=== PATIENT | female | born 1960 | race Caucasian/White ===

== ENCOUNTER 2017-07-07 17:38 | Emergency (ER) | payer OTHER ==
[~2017-07-07] VITALS: Ht 167.6 cm; Wt 70.3 kg
[~2017-07-07 17:38] MED LIST: LITHIUM CARBON300 M1 PO
[2017-07-07] MEDS ORDERED: BUPROPION HCL150 M2 PO (17:59)
[2017-07-07] MEDS ORDERED: TRAZODONE HCL150 MG PO (17:59)
[2017-07-07] MEDS ORDERED: GEMFIBROZIL600 MG PO (17:59)
[2017-07-07] MEDS ORDERED: METFORMIN HCL500 M1 PO (17:59)
[2017-07-07] MEDS ORDERED: IBUPROFEN800 MG PO (18:00)
[2017-07-07] MEDS ORDERED: LYRICA100 MG PO (18:02)
[2017-07-07] MEDS ORDERED: MELOXICAM7.5 MG PO (18:49)
[2017-07-07] MEDS ORDERED: TRAMADOL HCL50 MG PO (19:31)
== END 2017-07-07 20:04 | disposition home or self-care (01) ==
LOC: ED 17:38
DX: M25.572 Pain in left ankle and joints of left foot (principal); F17.200 Nicotine dependence, unspecified, uncomplicated; Z90.710 Acquired absence of both cervix and uterus; Z98.890 Other specified postprocedural states; Z88.8 Allergy status to other drugs, medicaments and biological substances; Z79.84 Long term (current) use of oral hypoglycemic drugs
CPT/HCPCS: 73610; 84550; 85025; 96372; 99283; J1885

== ENCOUNTER 2020-06-01 13:00 | Emergency (ER) | payer OTHER ==
[~2020-06-01] VITALS: Ht 167.6 cm; Wt 71.2 kg
[~2020-06-01 13:00] MED LIST changes: +B COMPLEX1 EACH PO; +BUPROPION HCL150 M2 PO; +CITALOPRAM HBR20 MG PO; +FISH OIL 1,0001 EAC5 PO; +GEMFIBROZIL600 MG PO; +IBUPROFEN800 MG PO; +LISINOPRIL10 MG PO; +LYRICA100 MG PO; +MELOXICAM7.5 MG PO; +METFORMIN HCL500 M1 PO; +TRAMADOL HCL50 MG PO; +TRAZODONE HCL150 MG PO; +ULTRAM50 MG PO
[2020-06-01] MEDS ORDERED: MECLIZINE HCL25 MG PO (13:22)
[2020-06-01] MEDS ORDERED: EC-NAPROXEN500 MG PO (13:23)
[2020-06-01] MEDS ORDERED: COZAAR50 MG PO (13:23)
[2020-06-01] MEDS ORDERED: NORCO 5-325 TA1 EACH PO (15:08)
[2020-06-01] MEDS ORDERED: TIZANIDINE HCL2 M1 PO (15:08)
== END 2020-06-01 15:16 | disposition home or self-care (01) ==
LOC: ED 13:00
DX: R60.0 Localized edema (principal); G89.29 Other chronic pain; F32.9 Major depressive disorder, single episode, unspecified; I10 Essential (primary) hypertension; E78.00 Pure hypercholesterolemia, unspecified; Z88.8 Allergy status to other drugs, medicaments and biological substances; Z79.899 Other long term (current) drug therapy
CPT/HCPCS: 93971; 99283-25

== ENCOUNTER 2022-08-18 08:39 | Emergency (ER) | payer MEDICARE, OTHER ==
[~2022-08-18] VITALS: Ht 167.6 cm; Wt 71.2 kg
[~2022-08-18 08:39] MED LIST changes: +COZAAR50 MG PO; +EC-NAPROXEN500 MG PO; +MECLIZINE HCL25 MG PO; +NORCO 5-325 TA1 EACH PO; +TIZANIDINE HCL2 M1 PO
--- OUTSIDE RECORDS SUMMARY | 2022-08-18 08:42 | XMS ---
PreManage Notification: CRISTINA CHUN Security Corporate Legal Manager Events No recent Security Events currently on file CRITERIA MET - [facility] [place] CARE PROVIDERS There are no care providers on record at this time. Tommy has no Care Guidelines for this patient. Calvin VISIT COUNT (12 MO.) 1 Marty Rodriguez TOTAL 2 NOTE: Visits indicate total known visits. ED/C VISIT TRACKING (12 MO.) 08/18/2022 08:40 [facility] [place] TYPE: Emergency COMPLAINT: - LT FOOT PAIN 10/17/2021 18:04 Marty RIOS [place] TYPE: Emergency DIAGNOSES: - Altered mental status, unspecified - Altered Mental Status - Other psychoactive substance use, unspecified with intoxication, uncomplicated INPATIENT VISIT TRACKING (12 MO.) No inpatient visits to display in this time frame [id number]
== END 2022-08-18 09:40 | disposition home or self-care (01) ==
LOC: ED 08:39
DX: S93.402A Sprain of unspecified ligament of left ankle, initial encounter (principal); I10 Essential (primary) hypertension; E78.00 Pure hypercholesterolemia, unspecified; F17.200 Nicotine dependence, unspecified, uncomplicated; Z88.8 Allergy status to other drugs, medicaments and biological substances; Z79.899 Other long term (current) drug therapy; W10.9XXA Fall (on) (from) unspecified stairs and steps, initial encounter
CPT/HCPCS: 73610; 99283-25

== ENCOUNTER 2022-08-21 14:03 | Emergency (ER) | payer MEDICARE, OTHER ==
[~2022-08-21] VITALS: Ht 167.6 cm; Wt 71.2 kg
--- OUTSIDE RECORDS SUMMARY | 2022-08-21 14:06 | XMS ---
PreManage Notification: CRISTINA CHUN Security Financial Rep Events No recent Security Events currently on file CRITERIA MET - [facility] - 2 Visits in 30 Days - [facility] CARE PROVIDERS There are no care providers on record at this time. Tommy has no Care Guidelines for this patient. Calvin VISIT COUNT (12 MO.) 1 [facility] NOTE: Visits indicate total known visits. ED/C VISIT TRACKING (12 MO.) [facility] 14[facility] [place] [facility] COMPLAINT: - ALTERED LOC 08/18/2022 08:40 [facility] [place] TYPE: Emergency COMPLAINT: - LT FOOT PAIN DIAGNOSES: - Sprain of unspecified ligament of left ankle, initial encounter - Pure hypercholesterolemia, unspecified - Other manager long term care (current) drug therapy - Nicotine dependence, unspecified, uncomplicated - Essential (primary) hypertension - Fall (on) (from) unspecified stairs and steps, initial encounter - Allergy status to other drugs, medicaments and biological substances 10/17/2021 18:04 Marty RIOS [place] TYPE: Emergency DIAGNOSES: - Altered mental status, unspecified - Altered Mental Status - Other psychoactive substance use, unspecified with intoxication, uncomplicated INPATIENT VISIT TRACKING (12 MO.) No inpatient visits to display in this time frame [id number]
== END 2022-08-21 17:11 | disposition home or self-care (01) ==
LOC: ED 14:03
DX: F11.90 Opioid use, unspecified, uncomplicated (principal); I10 Essential (primary) hypertension; E78.00 Pure hypercholesterolemia, unspecified; F17.200 Nicotine dependence, unspecified, uncomplicated; Z88.8 Allergy status to other drugs, medicaments and biological substances; Z79.899 Other long term (current) drug therapy
CPT/HCPCS: 36415; 80053; 85025; 99285; G0480

== ENCOUNTER 2022-09-12 14:07 | Emergency (ER) | payer MEDICARE, OTHER ==
[~2022-09-12] VITALS: Ht 167.6 cm; Wt 68.0 kg
--- OUTSIDE RECORDS SUMMARY | 2022-09-12 14:10 | XMS ---
PreManage Notification: CRISTINA CHUN Security Engineering Manager Events No recent Security Events currently on file CRITERIA MET - [facility] - 2 Visits in 30 Days - [facility] CARE PROVIDERS There are no care providers on record at this time. Tommy has no Care Guidelines for this patient. Calvin VISIT COUNT (12 MO.) 2 [facility] NOTE: Visits indicate total known visits. ED/C VISIT TRACKING (12 MO.) [facility]22 14[facility] [place] [facility] COMPLAINT: - LT ANKLE INJURY 09/06/2022 15:41 Marty CraneTory RIOS [place] TYPE: Emergency DIAGNOSES: - Overdose (Accidental) - Other shelter (current) drug therapy - Poisoning by unspecified narcotics, accidental (unintentional), initial encounter - Overdose 08/21/2022 14:04 [facility] [place] TYPE: Emergency COMPLAINT: - ALTERED LOC DIAGNOSES: - Slurred speech - Pure hypercholesterolemia, unspecified - Allergy status to other drugs, medicaments and biological substances - Opioid use, unspecified, uncomplicated - Other local company intermodal truck driver (current) drug therapy - Nicotine dependence, unspecified, uncomplicated - Essential (primary) hypertension 08/18/2022 08:40 [facility] [place] TYPE: Emergency COMPLAINT: - LT FOOT PAIN DIAGNOSES: - Nicotine dependence, unspecified, uncomplicated - Essential (primary) hypertension - Fall (on) (from) unspecified stairs and steps, initial encounter - Allergy status to other drugs, medicaments and biological substances - Sprain of unspecified ligament of left ankle, initial encounter - Pure hypercholesterolemia, unspecified - Other shelter (current) drug therapy 10/17/2021 18:04 Marty RIOS [place] TYPE: Emergency DIAGNOSES: - Altered mental status, unspecified - Altered Mental Status - Other psychoactive substance use, unspecified with intoxication, uncomplicated INPATIENT VISIT TRACKING (12 MO.) No inpatient visits to display in this time frame [id number]
[2022-09-12] MEDS ORDERED: BUPRENORPHINE HC2 MG SL (14:27)
[2022-09-12] MEDS ORDERED: HYDROCHLOROTHIA25 MG PO (14:27)
[2022-09-12] MEDS ORDERED: PREGABALIN75 MG PO (14:27)
[2022-09-12] MEDS ORDERED: BACLOFEN5 MG PO (14:27)
[2022-09-12] MEDS ORDERED: LITHIUM CARBON300 MG PO (14:27)
[2022-09-12] MEDS ORDERED: LAMOTRIGINE25 MG PO (14:28)
[2022-09-12] MEDS ORDERED: DULOXETINE HCL60 MG PO (14:28)
== END 2022-09-12 18:17 | disposition home or self-care (01) ==
LOC: ED 14:07
PROC: 2W3MX1Z Immobilization of Left Lower Extremity using Splint (ICD-10-PCS; principal; 2022-09-12)
DX: S92.012A Displaced fracture of body of left calcaneus, initial encounter for closed fracture (principal); I10 Essential (primary) hypertension; E78.00 Pure hypercholesterolemia, unspecified; F17.200 Nicotine dependence, unspecified, uncomplicated; Z88.8 Allergy status to other drugs, medicaments and biological substances; Z79.899 Other long term (current) drug therapy; X50.1XXA Overexertion from prolonged static or awkward postures, initial encounter
CPT/HCPCS: 29515; 73610; 73700; 99284-25

== ENCOUNTER 2022-12-07 11:35 | Inpatient (IN) | payer MEDICARE, OTHER ==
[~2022-12-07] VITALS: Ht 167.6 cm; Wt 59.7 kg
[~2022-12-07 11:35] MED LIST changes: +BACLOFEN5 MG PO; +BUPRENORPHINE HC2 MG SL; +DULOXETINE HCL60 MG PO; +HYDROCHLOROTHIA25 MG PO; +LAMOTRIGINE25 MG PO; +LITHIUM CARBON300 MG PO; +PREGABALIN75 MG PO
--- OUTSIDE RECORDS SUMMARY | 2022-12-07 11:37 | XMS ---
PreManage Notification: CRISTINA CHUN Security Oral Surgeon Events No recent Security Events currently on file CRITERIA MET - [facility] - 6 ED Visits in 6 Months CARE PROVIDERS -, [place]- Dentist: Export Administrator [facility] PHONE: [phone] Tommy has no Care Guidelines for this patient. EBibi VISIT COUNT (12 MO.) 1 Marty Rodriguez TOTAL 6 NOTE: Visits indicate total known visits. ED/UCC VISIT TRACKING (12 MO.) 12/07/2022 11:36 [facility] [place] TYPE: Emergency COMPLAINT: - LT KNEE PAIN 09/14/2022 17:43 [facility] [place] TYPE: Emergency COMPLAINT: - L FOOT PAIN DIAGNOSES: - Other supervisor intermediates (current) drug therapy - Essential (primary) hypertension - Unspecified fracture of left calcaneus, subsequent encounter for fracture with routine healing - Pure hypercholesterolemia, unspecified - Allergy status to other drugs, medicaments and biological substances - Nicotine dependence, unspecified, uncomplicated - Allergy status to other antibiotic agents - Pain in left foot 09/12/2022 14:08 [facility] [place] TYPE: Emergency COMPLAINT: - LT ANKLE INJURY DIAGNOSES: - Other residential (current) drug therapy - Nicotine dependence, unspecified, uncomplicated - Essential (primary) hypertension - Allergy status to other drugs, medicaments and biological substances - Overexertion from prolonged static or awkward postures, initial encounter - Pain in left ankle and joints of left foot - Pure hypercholesterolemia, unspecified - Displaced fracture of body of left calcaneus, initial encounter for closed fracture 09/06/2022 15:41 Marty RIOS [place] TYPE: Emergency DIAGNOSES: - Other supervisor intermediates (current) drug therapy - Poisoning by unspecified narcotics, accidental (unintentional), initial encounter - Overdose - Overdose (Accidental) 08/21/2022 14:04 [facility] [place] TYPE: Emergency COMPLAINT: - ALTERED LOC DIAGNOSES: - Allergy status to other drugs, medicaments and biological substances - Opioid use, unspecified, uncomplicated - Other residential (current) drug therapy - Nicotine dependence, unspecified, uncomplicated - Essential (primary) hypertension - Slurred speech - Pure hypercholesterolemia, unspecified 08/18/2022 08:40 [facility] [place] TYPE: Emergency COMPLAINT: - LT FOOT PAIN DIAGNOSES: - Fall (on) (from) unspecified stairs and steps, initial encounter - Allergy status to other drugs, medicaments and biological substances - Sprain of unspecified ligament of left ankle, initial encounter - Pure hypercholesterolemia, unspecified - Other residential (current) drug therapy - Nicotine dependence, unspecified, uncomplicated - Essential (primary) hypertension INPATIENT VISIT TRACKING (12 MO.) No inpatient visits to display in this time frame [id number]
--- NOTE | 2022-12-07 19:30 | NUR ---
RECEIVED BEDSIDE REPORT FROM OFFGOING SHIFT, HOURLY ROUNDING INITIATED
--- NOTE | 2022-12-07 20:09 | NUR ---
IN PT ROOM FOR MEDICATION ADMINISTRATION AND ASSESSMENT. PT HAS COMPLAINT OF PAIN 6/10 IN KNEE. PT GIVEN MEDICATION AND REPOSITIONED, NO FURTHER COMPLAINT, CALL LIGHT IN REACH.
--- NOTE | 2022-12-07 23:30 | NUR ---
IN PT ROOM FOR MEDICATION ADMINISTRATION, PT COMPLAINING OF 6/10 PAIN IN KNEE. PT ASSISTED TO COMMODE BY MOTOR HOME ELECTRICAL FOREMAN, NO FURTHER COMPLAINT AFTER MEDICATION ADMINISTRATION, CALL LIGHT IN REACH.
--- NOTE | 2022-12-08 00:15 | NUR ---
PT AWAKE AND ALERT, DESIRES TO AMBULATE TO BR INSTEAD OF USING BSC, PT PREFERS TO TRANSFER TO SIDE OF BED WITH LIMITED ASSIST, USING RIGHT LEG TO SUPPORT LEFT LEG, PT ABLE TO USE FWW WITH RN STAND BY ASSIST, VOIDED 250ML YELLOW URINE, NO C/O DIZZINESS WITH AMBULATION, BACK TO BED, DESIRES TO SIT ON SIDE OF BED, HS CARE COMPLETED, BACK TO BED, SCDS REPLACED, HEEL PROTECTOR TO RIGHT HEEL, TOWEL ROLL TO LEFT ANKLE, CRYO PLACED ON LEFT KNEE, IV PATENT, INFUSING WELL. PT REPORTS FEELIMG UNCOMFORTABLE BUT STATES SHE WILL TRY TO REST AND WAIT TILL ABOUT 0200 FOR ADDITIONAL PAIN MED.
--- NOTE | 2022-12-08 00:59 | NUR ---
IN PT ROOM FOR ROUNDING. PT RESTING ON BACK, WATCHING TELEVISION. PT STATES SHE IS FEELING BETTER AFTER PAIN MEDICATION, HAS NO FURTHER COMPLAINT, CALL LIGHT IN REACH.
--- NOTE | 2022-12-08 01:52 | NUR ---
in pt room for rounding. pt resting on back, eys closed, breathing even and unlabored, no indication of pain or discomfort. call light in reach.
--- NOTE | 2022-12-08 03:34 | NUR ---
In pt room for rounding. pt resting on back, eyes closed, breathing even and unlabored with no indication or complaint of pain at this time. call light in reach.
--- NOTE | 2022-12-08 06:53 | NUR ---
IN PT ROOM FOR ROUNDING. PT RESTING ON BACK, HOB ELEVATED, EYES CLOSED, BREATHING EVEN AND UNLABORED, CALL LIGHT IN REACH. PT PRE-OP CHLORAHEXADINE WIPE DOWN COMPLETE WELL CLOTHES CHANGE AND LINEN CHANGE. PT HAS NO COMPLAINT OF PAIN, CALL LIGHT IN REACH.
--- NOTE | 2022-12-08 07:08 | NUR ---
Changed bedding, wiped down patient with cleanse wipes, put a new gown on. After patient back in bed got her a warm blanket and made sure call light was within reach.
--- NOTE | 2022-12-08 07:30 | NUR ---
REPORT RECEIVED FROM NIGHT RN AND PATIENT CARE RESUMED. PT. IS ALERT AND ORIENTED TO ALL. PRE-OP CHECKLIST COMPLETED PT. DENIES FURTHER NEEDS. LEFT RESTING WITH CALL LIGHT IN REACH.
--- NOTE | 2022-12-08 07:49 | NUR ---
PT CALL LIGHT ON. PT REQUESTS ASSISTANCE UP TO RESTROOM. 1 PERSON ASSIST UP TO BEDSIDE COMODE. PT VOIDS 600ML CLEAR YELLOW URINE, PARVEEN CARE PER PT. 1 PERSON ASSIST BACK TO BED. NO ADDITIONAL REQUESTS OR COMPLAINTS. PT REPORTS 5/10 PAIN IN LEFT KNEE. PT DENIES NEED FOR PAIN MEDICATION AT THIS TIME. CALL LIGHT WITHIN REACH. BED RAILS UP.
--- NOTE | 2022-12-08 08:00 | NUR ---
IV FLUIDS OFF OF PUMP AND PT PLACED ON LR WITH STRAIGHT TUBING PER DRY CHAIN WORKER, ANN MARIE. REPORT GIVEN TO ANN MARIE INCLUDING CARDIAC HISTORY (AND POSSIBLE NEED FOR EKG), AND LACK OF PRE-OP ABX ORDERS. ORDERS FROM RENATO SILVER CRNA, FOR PRE-OP EKG. ORDERS ENTERED, MOLD MOVER CALLED. DR HUFFMAN CALLED AND CONFIRMS NO PRE-OP ABX ORDERS.
--- NOTE | 2022-12-08 10:19 | NUR ---
12/08/22 1019 Yazmin Weaver LE 0956: PT ARRIVES TO PACU EXTREMLY PAINFUL. REPORTING HER PAIN A 12/10. SHE IS HOOKED UP TO THE CRYOCUFF, HER PAIN COMES DOWN QUICKLY WITH THE ICE. TO A /10. LE 1014: PT IS TAKEN OFF OXYGEN TO TRIAL ON ROOM AIR, AFTER ASKING FOR ICE CHIPS. LE 1018: ANIMAL HEALTH TECHNICIAN TO GIVE RESCUE BLOCK AT THE BEDSIDE. PT IS TOLERATING ICE CHIPS WITHOUT ISSUES. SHE REPROTS FEELIN COLD AND WANTS TO SIT UP IN BED HIGHER.
--- NOTE | 2022-12-08 10:55 | NUR ---
PT. ARRIVED FROM PACU VIA BED. REPORT RECEIVED FROM RN. PT. REPORTS LEFT KNEE PAIN 01/16. ADMIN. PRN MED. CRYO CUFF IN PLACE AND OMAR WRAP AROUND LEFT KNEE C.D.I. ASSESSMENT COMPLETED. VITALS STABLE. PT. TOLERATING PUDDING AND ICE CHIPS. HEEL PROTECTORS AND SCD IN PLACE. WILL CONTINUE TO MONITOR.
--- NOTE | 2022-12-08 12:25 | NUR ---
X-RAY TO BEDSIDE FOR IMMAGING. PT IN TEARS AND REPORTS TECHNITIAN WAS "TOO ROUGH." THERAPUTIC COMMUNICATION DONE. PT REPORTS 5/10 PAIN THAT IS "FINE FOR NOW" AND DECLINES ADDITIONAL PAIN MEDICATION AT THIS TIME. IV FLUIDS RESTARTED. DIET ADVANED TO REGULAR PER MD ORDER AND ORDER CALLED TO KITCHEN. PT DENIES ADDITIONAL REQUESTS OR COMPLAINTS. PTS PRIMARY NURSE UPDATED. NO ADDITIONAL REQUESTS OR COMPLAINTS AT THIS TIME. CALL LIGHT WITHIN REACH. BED RAILS UP.
--- NOTE | 2022-12-08 12:43 | NUR ---
[facility]. NO DOCCUMENTATION REGARDING WHEN FIRST DOES WAS GIVEN. PACU CALLED, STATES TXA WAS GIVEN "AT THE BEGINING OF THE CASE." 1ST DOES OF TXA TIMED FOR 829, 2ND DOES DUE NOW. AWAITING ARRIVAL FROM [facility].
--- NOTE | 2022-12-08 12:57 | NUR ---
VITALS, MEDICATION AND ASSESSMENT DUE. PT RESTING WITH EYES CLOSED. AWAKENS TO MOVEMENT IN THE ROOM. PT REPORTS 5/10 PAIN IN LEFT KNEE AND REQUESTS ADDITIONAL PAIN MEDICATION, SEE MAR FOR MEDICATION GIVEN. TXA GIVEN. DRESSING TO LEFT KNEE REMAINS C/D/I. PLANTAR AND DORSI FELXTION PRESENT BUT MODERATE IN STRENGTH. STRONG PEDIAL AND TIBIALIS PULSES NOTED. CRYO CUFF, ELPIDIO HOSE AND SCD'S REMAIN PLACE. I.S. PROVIDED. PT DEMONSRATES UNDERSTANDING BY REACHING 1750ML X5. LUNCH DELIVERED. PT DENIES NAUSEA. PT EATING LUNCH. NO ADDITIONAL REQUESTS OR COMPLAINTS. CALL LIGHT WITHIN REACH. BED RAILS UP.
--- NOTE | 2022-12-08 13:55 | NUR ---
FOCUSED ASSESSMENT COMPLETED. PT. C/O TOLERABLE PAIN IN L. KNEE THAT IS "TIGHTNESS". REFUSES PAIN MEDS AT THIS TIME. LLE REMAINS UNCHANGED AND DRESSING CDI. HEEL PROTECTORS, CRYOCUFF IN PLACE. LEFT RESTING WITH CALL LIGHT IN REACH.
--- NOTE | 2022-12-08 14:39 | NUR ---
PATIENT IN BED, I/O'S COMPLETED. ICE WATER GIVEN. CALL LIGHT WITHIN REACH.
[2022-12-08] MEDS ORDERED: BUPRENORPHINE-1 EACH SL (15:50)
[2022-12-08] MEDS ORDERED: ALEVE220 MG PO (15:51)
[2022-12-08] MEDS ORDERED: ARIPIPRAZOLE2 MG PO (15:56)
[2022-12-08] MEDS ORDERED: TRAZODONE HCL50 MG PO (15:57)
[2022-12-08] MEDS ORDERED: AMLODIPINE BESY10 MG PO (16:02)
--- NOTE | 2022-12-08 16:20 | NUR ---
PT CALL LIGHT ON. PT REQEUSTS TO GET UP OUT OF BED. 1 PERSON ASSIST WITH FWW UP TO CHAIR. PT TOLERATES ACTIVITY VERY WELL AND IS ABLE TO TAKE SMALL STEPS UP TO CHAIR, PT BEARING MOST OF HER WEIGHT ON HER NON SURGICAL LEG. PT REPORTS 7/10 PAIN WITH ACTIVITY THAT SETTLES TO 4/10 ONCE RESTING IN CHAIR. ICE IN CRYO CUFF REFILLED. PT TOLERATING ROOM AIR WITH OXYGEN SATUARTIONS OF 95-100%. NO ADDITIONAL REQUESTS OR COMPLAINTS. PT TALKING WITH A FRIEND ON THE PHONE. CALL LIGHT WITHIN REACH. PTS PRIMARY RN UPDATED.
--- NOTE | 2022-12-08 16:44 | NUR ---
medications reconciled using pharmacy records and patient interview
--- NOTE | 2022-12-08 18:11 | NUR ---
PT CALL LIGHT ON. PT REQUESTS TO GET BACK TO BED. 1 PERSON ASSIST WITH FWW BACK TO BED. PT ABLE TO TAKE SMALL STEPS BACK TO BED. HAS TROUBLE LIFTING LEG INTO BED, ASSISTED. CRYO CUFF, SCD'S, ELPIDIO HOSE ALL IN PLACE. DRESSING REMAINS C/D/I. ICE WATER REFILLED. PT ASSISTED WITH DENTRUES, DENTURE CREAM PROVIDED. OXGYEN SATURATION OF 100% ON ROOM AIR. PTS PRIMARY RN UPDATED. NO ADDITIONAL REQUESTS OR COMPLAINTS. CALL LIGHT WITHIN REACH. BED RAILS UP.
--- NOTE | 2022-12-08 19:14 | NUR ---
BEDSIDE REPORT RECEIVED FROM MOON CARBAJAL, PT ALERT,DENIES NEEDS AT THIS TIME, RESP EVEN AND REG.
--- NOTE | 2022-12-08 21:00 | NUR ---
PT CALLED, REQUESTED UP TO COMMODE. SLOW, BUT ABLE TO LIFT LEFT LEG VIA RIGHT LEG WITH RN SUPPORT. DELMER. ASSIST TO STAND, PIVOT TO BSC; VERY LITTLE WEIGHT BEARING, SHE STATED SHE HASN'T TRIED MUCH YET, BUT STATES THIS TRANSFER WAS BETTER THAN THE FIRST TIME OUT OF BED. VOIDED, STOOD AT BEDSIDE WITH THIS RN PRESENT FOR COUPLE MIN, WHILE SHE STOOD ON BOTH LEGS. BACK TO BED, ABLE TO GET BOTH LEGS INTO BED, SUPPORTED WITH HER RIGHT LEG. BACK TO BED. FRESH ICE WATER, CRYO FILLED WITH ICE WATER, SCD'S PRESENT AND ON. ELPIDIO MOROCHO. CALL LIGHT WITHIN REACH.
--- NOTE | 2022-12-08 21:56 | NUR ---
TC TO DR HUFFMAN, ORDERS RECEIVED FOR BILATERAL SCDS, ORDER ENTERED PER YESSY CARBAJAL.
--- NOTE | 2022-12-08 22:11 | NUR ---
PT REQUESTING PAIN MED FOR LEFT KNEE PAIN, 03/18, MEDICATED PER ORDER WITH OXYCODONE 10MG, PT RESTING IN BED, WATCHING TV.
--- NOTE | 2022-12-08 22:26 | NUR ---
PT MEDICATED WITH RT TORADOL IV PER ORDER, IV SITE PATENT.
--- NOTE | 2022-12-08 22:40 | NUR ---
PT DESIRES TO SIT ON SIDE OF BED FOR A FEW MOMENTS, ABLE TO MOVE LEFT LEG WITH USE OF RIGHT LEG, TOLERATED TRANSFER TO SITTING POSITION WITH RN STAND BY, PT BACK TO BED AFTER A FEW MINUTES, SCDS REPLACED AND CRYO REPLACED TO LEFT KNEE, PT RESTING.
--- NOTE | 2022-12-08 23:15 | NUR ---
RN CALLED TO ROOM TO LOOSEN SCD ON LEFT LEG, DONE PER PT REQUEST, CRYO UNIT IN PLACED AND REFILLED WITH ICE, PT REQUESTING SANDWICH AND JUICE, GIVEN PER REQUEST.
--- NOTE | 2022-12-09 00:15 | NUR ---
PT WAKE AND ALERT, DESIRES TO AMBULATE TO BR INSTEAD OF USING BSC, TRANSFERS WELL TO SIDE OF BED USING RIGHT LEG TO MOVE LEFT LEG, TO BR WITH FWW AND 1PA, VOIDED 250 ML YELLOW URINE, BACK TO SIDE OF BED, PERFORMING HS CARE WITH CASKET INSPECTOR AT BEDSIDE, BACK TO BED, SCDS APPLIED, CRYO TO LEFT KNEE, COLD, PT ASKING WHEN NEXT PAIN MED IS DUE, DISCUSSED OXYCODONE WOULD BE DUE APPROX 0200, DISCUSSED IF SHE NEEDS SOMETHING SOONER, PT STATES SHE WILL WAIT TILL CLOSER TO TWO, PT ATTEMPTING TO REST.
--- NOTE | 2022-12-09 01:50 | NUR ---
RN CALLED TO ROOM BY PT, PT REQUESTING PAIN MEDICATION FOR LEFT KNEE PAIN, MEDICATED WITH OXYCODONE 10MG PO PER ORDER, VS STABLE, HEEL PROTECTIOR PLACED ON LEFT FOOT, I/O DONE, CRYO IN PLACE AND COLD. IV PATENT AND INFUSING WELL.
--- NOTE | 2022-12-09 03:43 | NUR ---
Patient used commode at bedside. Refilled ice for cryo machine. Call light within reach. Nurse giving patient pain medication.
--- NOTE | 2022-12-09 03:44 | NUR ---
PT DESIRES TO GET UP TO BSC TO VOID, TRANSFERS WELL WITH 1PA, BACK TO BED, RT TORADOL IV GIVEN FOR LEFT KNEE PAIN, PT STATES SHE HAS HAD A HARD TIME SLEEPING, SCDS, HEEL PROTECTORS AND CRYO UNIT REFILLED WITH ICE AND PLACED ON LEFT KNEE, HOB LOWERED SLIGHTLY AND PT ATTEMPING TO SLEEP, AFTER ASSESSMENT DONE.
--- NOTE | 2022-12-09 06:45 | NUR ---
PT ASSISTED UP TO BSC PER WELL SERVICE PUMP EQUIPMENT OPERATOR, BACK TO BED, SCDS AND HEEL PROTECTORS IN PLACE, CRYO IN PLACE AND COOLING WELL, PT REQUESTING PAIN MED, MEDICATED WITH OXYCODONE 10MG PO PER ORDER, REPORTS SHE DID GET A LITTLE SLEEP PRIOR TO LAB DRAW THIS AM. IV PATENT.
--- NOTE | 2022-12-09 07:49 | NUR ---
PT UP TO THE CHAIR AT TIME OF SHIFT REPORT. AGREES SHE IS COMFORTABLE CALL LIGHT AND NEEDED ITEMS IN REACH.
--- NOTE | 2022-12-09 07:50 | NUR ---
Patient up in chair with SBA w/fww. Am care completed, cryo cuff in place. Pt has no other needs, call light within reach.
--- NOTE | 2022-12-09 09:03 | NUR ---
PATIENT BACK IN BED AFTER WALKING TO THE RESTROOM, SBA W/FWW. VITALS AND I/O'S COMPLETED. ICE RESTOCKED IN CRYO-CUFF, PT HAS NO OTHER NEEDS OR REQUESTS AT THIS TIME. CALL LIGHT WITHIN REACH.
--- NOTE | 2022-12-09 09:39 | NUR ---
PT TOLERATES MORNING MEAL RETURNS TO REST IN BED PER HER REQUEST. DR HUFFMAN IN EARLIER, PT DENIES ANY QUESTIONS OR CONCERNS. CRYO, SCD'S ETC ARE IN PLACE CALL LIGHT IN REACH
--- NOTE | 2022-12-09 10:58 | NUR ---
PT RESTING IN BED EYES CLOSED
--- NOTE | 2022-12-09 11:05 | NUR ---
PT AWAKENED FOR PAIN PILL IN ANTICIPATION OF P/T SOON
--- NOTE | 2022-12-09 12:12 | NUR ---
PT UP WORKING WITH P/T WALKING IN THE PERDUE DOING WELL. COOPERATIVE FOLLOWS INSTRUCTIONS
--- NOTE | 2022-12-09 14:53 | NUR ---
PT RESTING EYES CLOSED
--- NOTE | 2022-12-09 15:07 | NUR ---
CALLED DR HUFFMAN FOR TYLENOL FOR HEADACHE. PUT ORDER IN INSTRUCTED
--- NOTE | 2022-12-09 16:00 | NUR ---
PT UP TO THE TOILET INDEPENDANTLY WITH FWW APPEARS STEADY ON HER FEET. ABLE TO GET IN AND OUT OF BED UNASSISTED HOOKS UP HER OWN SCD'S AND CRYO CUFF. DR HUFFMAN CONTACTED FOR TYLENOL PT C/O'D OF HEADACHE. AGREES THIS WAS EFFECTIVE FOR HER DENIES FURTHER NEEDS
--- NOTE | 2022-12-09 17:07 | EKG ---
[facility] [address] [place] [address] Signed Normal sinus rhythm Normal ECG When compared with ECG of 14-APR-2018 08:25, No significant change was found Confirmed by WALTER PEDRAZA MD ([id number]) on 12/09/2022 5:07:10 PM Electronically Signed By: WALTER PEDRAZA MD 12/09/22 1707 PATIENT NAME: CRISTINA CHUN Electrocardiogram DATE OF : 56 PHYSICIAN: WALTER PEDRAZA MD REPORT #: [id number] REPORT IS CONFIDENTIAL AND NOT TO BE RELEASED WITHOUT AUTHORIZATION
--- NOTE | 2022-12-09 18:05 | NUR ---
PT UP IN THE ROOM INDPENDANTLY USING 4WW STATES SHE WANTS TO STAND AND STRETCH AWHILE, THEN RETURNS TO BED. NO C/O PAIN AT THIS TIME. PT STATES SHE WANTS TO GO HOME TOMORROW.
--- NOTE | 2022-12-09 19:14 | NUR ---
SHIFT REPORT RECEIVED FROM ABILIO CARBAJAL, PT RESTING WITH EYES CLOSED WITHOUT DISTRESS.
--- NOTE | 2022-12-09 20:55 | NUR ---
PT AWAKE AND ALERT, VS STABLE, ASSESSMENT COMPLETED, DISCUSSING PLAN FOR PAIN MEDICATION SCHEDULING TONIGHT.
--- NOTE | 2022-12-09 21:20 | NUR ---
PT UP TO BR WITH 1PA AND FWW, VOIDING WELL, PT DESIRES TO SIT UP IN RECYLINER FOR A WHILE, PT WATCHING TV, WITHOUT OTHER REQUESTS.
--- NOTE | 2022-12-09 22:47 | NUR ---
PT REQUESTING PAIN MED, MEDICATED PER ORDER WITH 10MG OXYCODONE FOR LEFT KNEE PAIN 03/18, PT BACK IN BED, SCDS AND ELPIDIO HOSE IN PLACE RIGHT LEG, OMAR WRAP AND SCDS IN PLACE TO LEFT LEG, HEEL PROTECTORS BILATERALLY. NEW ICE TO CRYO MACHINE AND DEVICE IN PLACE TO LEFT LEG, PT ATTEMPTING TO REST.
--- NOTE | 2022-12-09 23:46 | NUR ---
PT UP TO BR TO VOID, RN STANDBY, FWW, PT BACK TO BED, REPORTS LEFT KNEE PAINFUL /, OFFERED TYLENOL, PT AGREES, MED PER ORDER, PT ATTEMTPING TO REST.
--- NOTE | 2022-12-10 00:35 | NUR ---
RN CALLED TO PT'S ROOM, PT UNABLE TO SLEEP, AND STATES SHE SLEPT POORLY LAST NIGHT ALSO, REQUESTING SLEEPING MEDICATION, PT REPORTS SHE OCCASIONALLY TAKES TRAZAZONE 50 MG PRN, TC TO DR HUFFMAN, REQUEST OF PT REPORTED TO MD, ORDERS RECEIVED.
--- NOTE | 2022-12-10 00:45 | NUR ---
PT MEDICATED WITH TRAZAZONE 50MG PER ORDER, PT ATTEMPTING TO REST, NEW ICE TO CRYO MACHINE, DEVICE IN PLACE TO LEFT KNEE.
--- NOTE | 2022-12-10 02:13 | NUR ---
PT ASLEEP, RESP REGULAR, WITHOUT DISTRESS.
--- NOTE | 2022-12-10 03:32 | NUR ---
PT APPEARS TO SLEEP, RESP EVEN AND REG.
--- NOTE | 2022-12-10 05:15 | NUR ---
RN CALLED TO ROOM, PT DESIRES TO GET UP TO GO TO , ABLE TO TRANSFER TO SIDE OF BED WITH LIMITED ASSIST, AMB WITH FWW, VOIDED 900ML LIGHT YELLOW URINE, BACK TO BED, MEDICATED WITH OXYCODONE 10MG PER REQUEST FOR LEFT KNEE PAIN 02/16, SCDS AND HEEL PROTECTOR PLACED ON, CYRO UNIT REPLACED TO LEFT KNEE, NEW ICE TO CANISTER. ASSESSMENT DONE, ATTEMPTED TO FLUSH BUT CAUSES DISCOMFORT AND APPEARS INFILTRATED, D'MIO INTACT, PRESSURE DRESSING APPLIED, CATH INTACT. PT STATES SHE IS AWAKE FOR THE DAY, WITHOUT OTHER REQUESTS.
--- NOTE | 2022-12-10 07:50 | NUR ---
PT AWAKE AND UP TO CHAIR AT TIME OF SHIFT REPORT. DENIES NEEDS AT THIS TIME
--- NOTE | 2022-12-10 08:00 | NUR ---
PT WITHOUT IV ACCESS, 2 ATTEMPTS FOR IV INSERTION. ECONOMICS CONSULTANT MARY TO ATTEMPT INSERTION.
--- NOTE | 2022-12-10 08:40 | NUR ---
BREAKFAST WELL TOLERATED PT SITTING UP IN THE CHAIR DENIES NEEDS AT THIS TIME MEDICATED FOR PAIN EARLIER AGREES SHE IS COMFORTABLE
--- NOTE | 2022-12-10 09:14 | NUR ---
PT RESTING IN BED WATCHING TV. SCDS AND CRYO IN PLACE. MEDICATED FOR PAIN PER REQUEST. CALL LIGHT AND NEEDED ITEMS AT BEDSIDE
--- NOTE | 2022-12-10 10:30 | NUR ---
PT ASSISTED TO BATHROOM, VOIDED. PT RE[facility] TO [facility]ALK [facility] WITH FWW. P.T. REQUESTING TO WORK WITH PT, PT NOW IN P.T. ROOM.
--- NOTE | 2022-12-10 11:17 | NUR ---
PT WORKED WITH P/T EARLIER WELL TOLERATED AMBULATING WITH FWW STEADY ON HER FEET. PT AGREES PAIN IS WELL CONTROLLED CONTINUES TO STATE SHE WANTS TO GO HOME TODAY
--- NOTE | 2022-12-10 11:50 | NUR ---
INTO SPEAK WITH PATIENT. PATIENT STATES SHE LIVES IN A ONE STORY HOME IN [place]. PATIENT LIVES WITH A ROOMATE, MIKAEL, WHO WILL BE AVAILABLE TO ASSIST HER AT DISCHARGE. PATIENT STATES HE INITIAL SURGERY WAS COMPLETED IN 2006, SO SHE IS NO LONGER IN PT. PATIENT DOES HAVE A WALKER AT HOME IF NEEDED AT DISCHARGE. PATIENT DENIES FINANCIAL OR NEEDS FOR FOOD AT THIS TIME. DISCUSSED POSSIBLE NEED FOR FURTHER ABX THERAPY AT DISCHARGE WELL PT. PATIENT HAS ACCESS TO FREE TRANSPORT WITH [facility] AND UNDERSTAND THE PROCESS FOR SCHEDULING TRANSPORTATION IN THE FUTURE. DEMOGRAPHIC INFORMATION IN NEED OF UPDATE, WILL EMAIL ADMITTING WITH NEW ADDRESS. PATIENT WOULD LIKE TO LIST ANDREW BUTT [phone] HER CONTACT. NO FURTHER NEEDS AT THIS TIME AND PATIENT FEELS SAFE DISCHARGING TO HOME WHEN STABLE.
--- NOTE | 2022-12-10 13:04 | NUR ---
PT ALERT, ORIENTED AND FINISHING UP A PHONE CALL. PT PLEASANT, SEEMED PLEASED I STOPPED BY. PT REQUESTED PRAYER, GAVE G.POST AND BLESSING. WILL FOLLOW
--- NOTE | 2022-12-10 15:00 | NUR ---
PICC LINE INSERTION NOTE WAS ASKED TO PLACE A PICC LINE FOR 6 WEEKS OF IV ABX. PT'S RIGHT ARM WAS EXAMINED THE PT HAS A LEFT ARM RESTRICTION. PT'S BASILIC, BRACHIAL, AND CEPHALIC VEINS WERE ALL VISUALIZED. THE BASILIC VEIN WAS DECIDED TO BE USED, ACCORDING TO SITE RITE 8 THE PICC LINE WOULD TAKE UP APPROXIMATELY 13% OF THE VEIN. THE VEIN RETURNED RED, NON-PULSITILE BLOOD. PT REPORTS NO PAIN DURING THE PROCEDURE. THE SITE RITE 8 SHOWS PEAKED P WAVES. THE PT PROVIDED WITH EDUCATION AND QUESTIONS ANSWERED. BED IN THE LOWEST POSITION, CALL LIGHT PROVIDED.
--- NOTE | 2022-12-10 15:08 | NUR ---
PT PICC PLACED WELL TOLERATED
--- NOTE | 2022-12-10 15:53 | NUR ---
THIS RN RESUMED CARE OF PT, REPORT OBTAINED FROM SOLOMON CONN. PT RESTING IN BED, JUST HAD PICC PLACEMENT. PT ON SUN AIR, LUNG SOUNDS CLEAR, DENIES SOB. BOWEL TONES ACTIVE, DENIES NAUSEA. PT WITH CRYOCUFF TO LEFT LEG, SCDS AND ELPIDIO HOSE IN PLACE. CMS INTACT. PT DNEIES NEEDS AT THIS TIME.
--- NOTE | 2022-12-10 16:34 | NUR ---
PT ASSISTED TO BATHROOM, SBA WITH FWW. CRYOCUFF ICE REFRESHED. PT REQUESTING PAIN MEDICATION RATING PAIN 4-5/10, GIVEN TYLENOL, TOO SOON FOR OXYCODONE. PT DENIES OTHER NEEDS AT THIS TIME.
--- NOTE | 2022-12-10 19:10 | NUR ---
RECEIVED REPORT FROM AM RN, PT IN BED, AWAKE, WATCHING TV. DENIES NEEDS AT THIS TIME.
--- NOTE | 2022-12-10 20:16 | NUR ---
BACK FROM BATHROOM WITH ANOTHER STAFF. REQUESTED AND RECEIVED SANDWICH BOX. FRESH ICE WATER; SCD'S IN PLACE, CRYO; HEEL. STATES PAIN IS CONTROLLED
--- NOTE | 2022-12-10 21:03 | NUR ---
PT ATE 100 % SANDWICH BOX, WAS ON PHONE WHEN RN LEFT ROOM. PICC RAC PULLS BACK BRISK BLOOD, FLUSHED NS, AND HEPARIN. QUESTIONS ANSWERED, POC DISCUSSED.
--- NOTE | 2022-12-10 21:15 | NUR ---
SBA PATIENT FROM BATHROOM TO BED. PATIENT'S UPPER DENTURE SOAKED IN THE CONTAINER PLACED BY THE SINK. CRYO BUCKET REFILLED. SCD'S AND CRYO CUFF ARE BACK ON. CALL LIGHT WITHIN REACH. NO OTHER NEEDS AT THIS TIME.
--- NOTE | 2022-12-10 22:55 | NUR ---
SBA PATIENT FROM BATHROOM BACK TO BED. SCD'S AND CRYO CUFF BACK ON. CALL LIGHT WITHIN REACH. NO FURTHER NEEDS AT THIS TIME.
--- NOTE | 2022-12-10 23:00 | NUR ---
WHEN PT UP TO BATHROOM SHE REQUESTED PAIN MEDICATION FOR 6/10 LEFT KNEE PAIN. PRN ADMINISTERED.
--- NOTE | 2022-12-11 00:51 | NUR ---
CALL LIGHT ANSWERED. SBA TO BATHROOM ANDBACK TO BED. PATIENT VOIDED 600ML LIGHT YELLOW URINE. SCD'S AND CRYO CUFF ARE BACK ON. DENIES FURTHER NEEDS AT THIS TIME.
--- NOTE | 2022-12-11 02:07 | NUR ---
ROUNDED: PT ON BACK, EYES CLOSED. RESP EVEN AND UNLABORED.
--- NOTE | 2022-12-11 02:55 | NUR ---
CALL ANSWERED. SBA TO BATHROOM AND BACK TO BED. CRYO REFILLED. ICE WATER REFRESHED. NO OTHER NEEDS AT THIS TIME.
--- NOTE | 2022-12-11 03:10 | NUR ---
PT REQUESTED AND RECEIVED PAIN MEDICATION FOR LEFT KNEE PAIN. STATED THAT WHEN SHE STOOD UP SHE HAD TO SIT DOWN, PAIN WAS "BAD", BUT ONCE SHE WAS UP, PAIN DECREASED. OFFERED AND ACCEPTED CHECO. PUDDING. SCD'S, TEDS' CRYO, HEEL PROTECTOR IN PLACE. FRESH ICE IN CRYO. NO OTHER NEEDS AT THIS TIME.
--- NOTE | 2022-12-11 04:05 | NUR ---
RESP EVEN AND UNLABORED, MOUTH BREATHING, EYES CLOSED.
--- NOTE | 2022-12-11 05:06 | NUR ---
PATIENT WAS P TO THE BATHROOM SBA USING WALKER. PATIENT IS BACKIN BED. V/S AND I &O'S TAKEN AND CHARTED. SCD AND CRY CUFF ON. DENIES OTHER NEEDS AT THIS TIME.
--- NOTE | 2022-12-11 05:21 | NUR ---
PT POST OP I/D LEFT KNEE (12-08-22); OMAR WRAP, CRYO, PT INDEPENDENT WITH SET UP, HEEL PROTECTORS, SCD'S TEDS. RA, A/O, INDEPENDENT IN AND OUT OF BED THIS SHIFT, SBA FWW TO BATHROOM. PAIN CONTROLED BY 10 MG OXYCODONE; I/O'S ADEQUATE. PICC RAC DRAWS BLOOD, FLUSHES WELL, DRESSING INTACT. PLAN IS PT WILL DC WITH PICC FOR OUTPATIENT ABX. L RESTRICTED ARM, H/O BREAST CANCER. DRESSING LEFT KNEE C/D/I.
--- NOTE | 2022-12-11 06:15 | NUR ---
UP TO BATHROOM, VOIDED, THEN BACK TO RECLINER CHAIR.
--- NOTE | 2022-12-11 06:30 | NUR ---
BACK TO BED, C/O SLIGHT DIZZINESS, BACK TO BED, ONCE IN BED, DIZZINESS SUBSIDED.
--- NOTE | 2022-12-11 07:01 | NUR ---
pain medication administered. MANGLE CATCHER in room updating pt condition, and POC.
--- NOTE | 2022-12-11 07:16 | NUR ---
REPORT RECEIVED FROM SOLOMON KRISHNAMURTHY. PT RESTING IN BED ON BACK WITH HEAD OF BED AT 25 DEGREES, AWAKE AN ALERT. PT DENIES REQUESTS OR COMPLANTS. REPORTS SHE IS "EXCITED TO GO HOME." BED RAILS UP. CALL LIGHT WITHIN REACH.
--- NOTE | 2022-12-11 07:40 | NUR ---
PATIENT UP TO BATHROOM THEN TO CHAIR, SBA FWW. AM CARE AND ORAL CARE DONE AT SINK BY PATIENT. CALL LIGHT IN REACH. NO FURHTER NEEDS AT THIS TIME.
[2022-12-11] MEDS ORDERED: XARELTO10 MG PO (07:47)
--- NOTE | 2022-12-11 07:51 | NUR ---
GAVE THE PATIENT THE IM LETTER FROM MEDICARE. THE PATIENT VOICED UNDERSTANDING ABOUT THE LETTER AND SIGNED AND DATED THE LETTER.
--- NOTE | 2022-12-11 07:57 | NUR ---
MORNING ASSESSMENT AND MEDICAITON DUE. PT UP TO CHAIR, INDENDANTLY, PT STEADY ON FEET AND USING WALKER APPROPRIATLY. PT POSITIONS SLEF IN CHAIR APPROPRIATLY WITH KNEE FLAT. PT VERBALIZES UNDERSTANDING, WITHOUT PROMPTING, THAT THERE SHOULD NOT BE A PILLOW UNDER HER KNEE WHILE SHE IS RECOVERING. PT PLACES CRYO CUFF CORRECTLY. PT REPORTS 4/10 PAIN AND STATES "I JUST HAD A PAIN PILL SO IT'S COMING DOWN" PT CURRENTLY RATES PAINAT 4/10 IN LEFT KNEE. PICC LINE WNL WITH BRISK BLOOD RETURN NOTED. DRESSIN C/D/I. STRONG PLANTAR AND DORSI FLEXTION NOTED BILATERALLY. STRONG PEDIAL AND TIBIALIS PULSES NOTED. CAPILLARY REFILL WNL. SURGICAL SITE DRESSING C/D/I WITH NO DRAINAGE NOTED. PT DEMONSTARTES USE OF I.S. REACHING 2000ML X5. PT DENIES ADDITIONAL REQUESTS OR COMPLAINTS. PT EATING BREAKFAST. CALL LIGHT WITHIN REACH.
--- NOTE | 2022-12-11 08:17 | NUR ---
PT REPORTS CRAVINGS FOR CIGARETTES. NO NICOTENE PATCH ORDERED FOR TODAY ALONE. ZAC MITCHELL STATES OK TO GIVE. NICOTENE PATCH APPLIED TO SHOULDER. NO ADDITIONAL REQUESTS OR COMPLAINTS. PT REVIEWING HOME MEDICATIONS WITH PHARMACIST. CALL LIGHT WITHIN REACH.
[2022-12-11] MEDS ORDERED: CEFTRIAXON2 GM/50 ML IV (08:33)
--- NOTE | 2022-12-11 08:33 | NUR ---
PUMP ALARMING, INFUSION AND FLUSH COMPLETE. PICC LINE ASSESSED, WNL, BRISK BLOOD RETURN NOTED. PICC LINE FLUSHED AND HEPARIN LOCKED PER PROTOCOL, ALCOHOL CAP APPLIED. PT UP TO RESTROOM WITH STAND BY ASSIST AND FWW. PT SAFE ON FEET AND ABLE TO IDENTIFY SAFTY HAZARDS. DISCHARGE INSTRUCTIONS REVIEWED WITH PT. PT VERBALIZES UNDERSTANDING OF DRESSING CHANGE, MEDICAITON, FOLLOW UP, APPOINTEMENT FOR IV ABX, HOME PICC LINE CARE AND ACTIVITY/PHYCIAL THERAPY. PT DENIES ADDITIONAL REQUESTS OR COMPLAINTS. AWAITING PTS RIDE HOME FOR DISCHRAGE. CALL LIGHT WITHIN REACH.
--- NOTE | 2022-12-11 08:58 | NUR ---
PT READY FOR DISCHARGE. PTS FRIEND ARRIVED TO TAKE HER HOME. DISCHARGE INSTRUCTIONS REVIEWED AGAIN WITH PT WHO STATES SHE DOES NOT HAVE ANY ADDITIONAL QUESTIONS. VITAL SIGNS STABLE. PT TRANSFERES SELF TO WHEELCHAIR AND STATES SHE HAS HER OWN WALKER AT HOME. ALL BELONGINGS RETURNED TO PT. PT WHEELED FROM MED/SURG. NO ADDITIONAL REQUESTS OR CONCERNS.
--- NOTE | 2022-12-12 11:06 | OR ---
[facility] [address] [place], [place] [address] Signed DATE OF OPERATION: 12/08/2022 SURGEON: Elaine Brown MD PREOPERATIVE DIAGNOSIS: Infection, left total knee arthroplasty. POSTOPERATIVE DIAGNOSIS: Infection, left total knee arthroplasty. PROCEDURE PERFORMED: Irrigation and debridement left TKR with polyethylene exchange and placement of antibiotic beads. MANAGER PHP: Leida Sheth PA-C. Leida was present and critical for all portions of the procedure. ANESTHESIA: General. BLOOD LOSS: 175 mL. TOURNIQUET TIME: Zero. Cultures were taken BRIEF HISTORY: Cristina is a 62-year-old female, who woke up yesterday morning with sudden onset of severe knee pain. She had no inciting events, no trauma and no infections that she is aware of. She presented to the ER where blood work showed a white count of 16.7 thousand with an elevated sedimentation rate. Aspiration of her knee showed a white blood cell count of 401,000 white blood cells. At that time, it was determined she probably had an infection. She was scheduled for the operating room. However, the operating room was in use with the of twins, unavailable. This was scheduled for this morning. She remained afebrile overnight. Her knee looked quite good actually, no redness and very little warmth. DESCRIPTION OF PROCEDURE: Once consent was obtained, she was taken to the operating room. After adequate Electronically Signed By: ELAINE BROWN MD 12/09/22 0748 Electronically Signed By: ELAINE BROWN MD 12/14/22 0734 PATIENT NAME: CRISTINA CHUN OPERATIVE REPORT DATE OF : 56 REPORT #: [id number] PHYSICIAN: ELAINE BROWN MD PCP: ANH DEJESUS DO REPORT IS CONFIDENTIAL AND NOT TO BE RELEASED WITHOUT AUTHORIZATION [facility] [address] [place], [place] [address] Signed anesthesia, she was placed on the operating room table. All downside pressure points were well padded. Hip bump was placed on the left and well-padded proximal thigh tourniquet was placed. The leg was then prepped and draped in a standard sterile fashion. The prior incision was marked out and incised. It was extended an inch in each direction. It was taken through the skin and subcutaneous tissue. Median parapatellar arthrotomy was performed. Prior to this, we did aspirate the knee of 15 mL yellow slightly turbid fluid. This certainly was not thick. The arthrotomy was opened up completely. The MCL was elevated with a sleeve around the mid medial to posteromedial corner. There was extensive scar buildup and bone buildup on top of the tibial component surrounding the polyethylene. This was removed using osteotomes and rongeurs. The partial synovectomy was completed in the anterior portion of the knee. The knee was then flexed and the polyethylene was removed. The synovectomy was then carried through the posterior aspect of the knee. Multiple soft tissue cultures were taken along with tissue cultures from several areas. Once this was completed, the metal components were scrubbed with a hydrogen peroxide soaked sponge. We then irrigated the knee with 3 L of normal saline. We then soaked the knee with a full bottle of Surgiphor. This was soaked for 10 minutes. This was then removed with further irrigation using normal saline. The new polyethylene was then positioned in the tibia and the knee was reduced. The calcium phosphate antibiotic beads were then placed in the posterior medial and lateral aspects of the knee. The arthrotomy was then closed over more beads in the suprapatellar pouch. These were scattered throughout the knee. The arthrotomy was closed with #1 PDS, subcutaneous tissue with 0 Stratafix, and the skin with bel. The wound was dressed with a Mepilex dressing, ABD, and Evangelist wrap. She tolerated the procedure well. All sponge, needle, and instrument counts were correct. Elaine Brown MD BA/MODL /[id number] Copies: ~ Electronically Signed By: ELAINE BROWN MD 12/09/22 0748 Electronically Signed By: ELAINE BROWN MD 12/14/22 0734 PATIENT NAME: CRISTINA CHUN OPERATIVE REPORT DATE OF : 56 REPORT #: [id number] PHYSICIAN: ELAINE BROWN MD PCP: ANH DEJESUS DO REPORT IS CONFIDENTIAL AND NOT TO BE RELEASED WITHOUT AUTHORIZATION
== END 2022-12-11 09:00 | disposition home or self-care (01) | DRG 487 ==
LOC: ED 11:35 → MS 17:05
PROVIDERS: ADMIT Specialist; ATTEND Specialist
PROC: 0SPD09Z Removal of Liner from Left Knee Joint, Open Approach (ICD-10-PCS; 2022-12-08)
PROC: 0SUW09Z Supplement Left Knee Joint, Tibial Surface with Liner, Open Approach (ICD-10-PCS; 2022-12-08)
PROC: 0S9D3ZZ Drainage of Left Knee Joint, Percutaneous Approach (ICD-10-PCS; principal; 2022-12-08 08:23)
PROC: 02HV33Z Insertion of Infusion Device into Superior Vena Cava, Percutaneous Approach (ICD-10-PCS; 2022-12-10)
DX: T84.54XA Infection and inflammatory reaction due to internal left knee prosthesis, initial encounter (principal); F32.A Depression, unspecified; G89.29 Other chronic pain; I10 Essential (primary) hypertension; E78.00 Pure hypercholesterolemia, unspecified; H91.92 Unspecified hearing loss, left ear; F17.210 Nicotine dependence, cigarettes, uncomplicated; M13.862 Other specified arthritis, left knee; I25.10 Atherosclerotic heart disease of native coronary artery without angina pectoris; J44.9 Chronic obstructive pulmonary disease, unspecified; J98.4 Other disorders of lung; F12.90 Cannabis use, unspecified, uncomplicated; Z20.822 Contact with and (suspected) exposure to COVID-19; Z90.710 Acquired absence of both cervix and uterus; Z98.890 Other specified postprocedural states; Z88.5 Allergy status to narcotic agent; Z88.8 Allergy status to other drugs, medicaments and biological substances; Z79.899 Other long term (current) drug therapy; Y83.1 Surgical operation with implant of artificial internal device as the cause of abnormal reaction of the patient, or of later complication, without mention of misadventure at the time of the procedure
CPT/HCPCS: 01400; 20610; 36415; 36569; 64484; 71045; 73560; 76942; 80048; 80053; 82945; 85025; 85651; 86140; 87070; 87075; 87205; 87502; 89051; 89060; 93005; 93010; 93971; 94640; 97012; 97110; 97116; 97162; 97530; 99285-25; A9270; C1751; C9803; J0690; J0696; J1100; J1170; J1885; J2001; J2405; J2704; J2795; J3010; J7120; U0003

== ENCOUNTER 2023-10-04 15:03 | Emergency (ER) | payer MEDICARE, OTHER ==
[~2023-10-04] VITALS: Ht 167.6 cm; Wt 73.8 kg
[~2023-10-04 15:03] MED LIST changes: +AMLODIPINE BESY10 MG PO; +ARIPIPRAZOLE2 MG PO; +BUPRENORPHINE-1 EACH SL; +CEFTRIAXON2 GM/50 ML IV; +LAMICTAL200 MG PO; +LASIX20 MG PO; +NAPROSYN500 MG PO; +TIZANIDINE HCL4 M1; +TRAZODONE HCL50 MG PO; +XARELTO10 MG PO
--- OUTSIDE RECORDS SUMMARY | 2023-10-04 15:07 | XMS ---
PreManage Notification: CRISTINA CHUN Security Admitting Manager Events No recent Security Events currently on file [facility]IA MET - [facility] [place] [facility] - 2 Visits in 30 Days CARE PROVIDERS -[place]- Dentist: Solar Panel Technician [facility] PHONE: [phone] [facility]: [facility] Current \F\ [facility] PHONE: [phone] Tommy has no Care Guidelines for this patient. [facility] MO.) [facility] NOTE: Visits indicate total known visits. ED/UCC VISIT TRACKING (12 MO.) 10/04/2023 15:04 [facility] [place] TYPE: Emergency COMPLAINT: - DIZZINESS 09/23/2023 11:14 [facility] [place] TYPE: Emergency COMPLAINT: - SOB 04/08/2023 08:50 [facility] [place] TYPE: Emergency COMPLAINT: - LOW B/P DIAGNOSES: - Allergy status to other drugs, medicaments and biological substances - Dizziness and giddiness - Essential (primary) hypertension - superintendent terminal (current) use of anticoagulants - Other custodial (current) drug therapy - Procedure and treatment not carried out due to patient leaving prior to being seen by health care provider - Weakness 12/07/2022 11:36 [facility] [place] TYPE: Emergency COMPLAINT: - LT KNEE PAIN/NO INJURY INPATIENT VISIT TRACKING (12 MO.) 09/23/2023 11:15 [facility] [place] TYPE: Observation COMPLAINT: - SHORTNESS OF BREATH, SINUS ARRHYTHMIA DIAGNOSES: - Allergy status to other drugs, medicaments and biological substances - Heart failure, unspecified - Hypertensive heart disease with heart failure - Major depressive disorder, single episode, unspecified - Nicotine dependence, unspecified, uncomplicated - Other chronic pain - Other custodial (current) drug therapy - Other specified cardiac arrhythmias - Pure hypercholesterolemia, unspecified - Shortness of breath 12/07/2022 17:05 [facility] [place] TYPE: Medical Surgical COMPLAINT: - INFECTED KNEE JOINT DIAGNOSES: - Acquired absence of both cervix and uterus - Acquired absence of both cervix and uterus - Allergy status to narcotic agent - Allergy status to narcotic agent - Allergy status to other drugs, medicaments and biological substances - Allergy status to other drugs, medicaments and biological substances - Atherosclerotic heart disease of [place] coronary artery without angina pectoris - Atherosclerotic heart disease of [place] coronary artery without angina pectoris - Cannabis use, unspecified, uncomplicated - Cannabis use, unspecified, uncomplicated - Chronic obstructive pulmonary disease, unspecified - Chronic obstructive pulmonary disease, unspecified - Contact with and (suspected) exposure to COVID-19 - Contact with and (suspected) exposure to COVID-19 - Depression, unspecified - Depression, unspecified - Essential (primary) hypertension - Essential (primary) hypertension - Infection and inflammatory reaction due to internal left knee prosthesis, initial encounter - Infection and inflammatory reaction due to internal left knee prosthesis, initial encounter - Nicotine dependence, cigarettes, uncomplicated - Nicotine dependence, cigarettes, uncomplicated - Other chronic pain - Other chronic pain - Other disorders of lung - Other disorders of lung - Other custodial (current) drug therapy - Other intermediate teacher (current) drug therapy - Other medical procedures as the cause of abnormal reaction of the patient, or of later complication, without mention of misadventure at the time of the procedure - Other specified arthritis, left knee - Other specified arthritis, left knee - Other specified postprocedural states - Other specified postprocedural states - Pain in left knee - Pure hypercholesterolemia, unspecified - Pure hypercholesterolemia, unspecified - Surgical operation with implant of artificial internal device as the cause of abnormal reaction of the patient, or of later complication, without mention of misadventure at the time of the procedure - Surgical operation with implant of artificial internal device as the cause of abnormal reaction of the patient, or of later complication, without mention of misadventure at the time of the procedure - Unspecified hearing loss, left ear - Unspecified hearing loss, left ear [email or web address]
[2023-10-04 15:33] LABS: EOSINOPHILS 3.9 % (0-6); HEMATOCRIT 34.1 % (35.0-50.0); HEMOGLOBIN 11.6 g/dL (12.0-18.0); LYMPHOCYTES 20.2 % (24-44); MCH 29.9 (27-36); MCHC 34.2 g/dl (30-36); MCV 87.6 fl (81-99); NEUTROPHILS 66.9 % (39-80); PLATELET COUNT 284 K/uL (140-440); RBC 3.89 M/ul (4.3-5.7); RDW 13.3 (10.5-15.0)
[2023-10-04 15:53] LABS: ALBUMIN 3.8 g/dL (3.4-5.0); ALBUMIN/GLOBULIN RATIO 1.31 (1.1-2.4); ALKALINE PHOSPHATASE 80 U/L (46-116); ALT (SGPT) 10 U/L (14-59); ANION GAP 12.8 (7-21); AST (SGOT) 9 U/L (15-37); BILIRUBIN, TOTAL 0.4 ng/dL (0.2-1.0); BUN/CREATININE RATIO 21.64 (6.0-28.6); CALCIUM 9.1 mg/dL (8.5-10.1); CARBON DIOXIDE 26 mmol/L (21-32); CHLORIDE 101 mmol/L (98-107); CREATININE, SERUM 1.34 mg/dL (0.55-1.02); GLOMERULAR FILTRATION RATE,EST 44 mL/min (>60); MAGNESIUM 2.4 mg/dL (1.8-2.4); POTASSIUM 3.8 mmol/L (3.5-5.1); PROTEIN, TOTAL 6.7 g/dL (6.4-8.2); UREA NITROGEN 29 mg/dL (7-18)
[2023-10-04 23:00] VITALS: BP 119/44
[2023-10-06 17:35] LABS: TRIIODOTHYRONINE,FREE FREE T3 2.8 pg/mL (2.5-4.3)
--- NOTE | 2023-10-06 18:43 | EKG ---
[facility] [address] [place], [place] [address] Signed Marked sinus bradycardia Abnormal ECG Confirmed by Stanton Thomas M.D. ([id number]) on 10/06/2023 6:42:52 PM Electronically Signed By: STANTON THOMAS 10/06/23 1843 PATIENT NAME: CRISTINA CHUN Electrocardiogram DATE OF : 56 PHYSICIAN: STANTON THOMAS REPORT #: [id number] REPORT IS CONFIDENTIAL AND NOT TO BE RELEASED WITHOUT AUTHORIZATION
== END 2023-10-04 23:00 | disposition short-term general hospital (02) ==
LOC: ED 15:03
PROVIDERS: Emergency Medicine; Internal Medicine
DX: I45.5 Other specified heart block (principal); I10 Essential (primary) hypertension; J44.9 Chronic obstructive pulmonary disease, unspecified; F17.200 Nicotine dependence, unspecified, uncomplicated; Z88.8 Allergy status to other drugs, medicaments and biological substances; Z79.899 Other long term (current) drug therapy
CPT/HCPCS: 36415; 80053; 83735; 84443; 84481; 84484; 85025; 93005; 93010; 99285-25

== ENCOUNTER 2024-12-31 10:16 | Emergency (ER) | payer MEDICARE, OTHER ==
[~2024-12-31] VITALS: Ht 167.6 cm; Wt 77.1 kg
[2024-12-31] MEDS ORDERED: IBUPROFEN 600 MG TAB PO ONE (12:30)
[2024-12-31] MEDS ORDERED: IRBESARTAN-HCT1 EAC1 PO (12:31)
[2024-12-31] MEDS ORDERED: TRAZODONE HCL50 MG NG (12:31)
[2024-12-31] MEDS ORDERED: METOPROLOL SUCC25 MG PO (12:31)
[2024-12-31] MEDS ORDERED: MECLIZINE HCL25 MG PO (12:32)
[2024-12-31 12:34] LABS: BASOPHILS 1.1 % (0-2); EOSINOPHILS 2.2 % (0-6); HEMATOCRIT 40.6 % (35.0-50.0); MCH 30.2 (27-36); MCHC 34.6 g/dl (30-36); MCV 87.3 fl (81-99); MONOCYTES 6.2 % (0-12); NEUTROPHILS 71.5 % (39-80); PLATELET COUNT 347 K/uL (140-440); RBC 4.65 M/ul (4.3-5.7); RDW 12.8 (10.5-15.0)
[2024-12-31 12:42] LABS: BILIRUBIN, URINE NEGATIVE (negative); BLOOD/HGB, URINE NEGATIVE (Negative); KETONE, URINE NEGATIVE (Negative); LEUK ESTERASE, URINE NEGATIVE (negative); NITRITE, URINE NEGATIVE (negative)
[2024-12-31 12:49] LABS: ALBUMIN 4.2 g/dL (3.4-5.0); ALBUMIN/GLOBULIN RATIO 1.17 (1.1-2.4); ANION GAP 14.3 (7-21); BILIRUBIN, TOTAL 0.4 mg/dL (0.2-1.0); BUN/CREATININE RATIO 14.14 (6.0-28.6); CALCIUM 9.6 mg/dL (8.5-10.1); CREATININE, SERUM 0.99 mg/dL (0.55-1.02); POTASSIUM 4.3 mmol/L (3.5-5.1); PROTEIN, TOTAL 7.8 g/dL (6.4-8.2)
[2024-12-31 12:50] LABS: BACTERIA, URINE NONE SEEN /hpf (negative); CASTS, URINE NONE SEEN \\lpf; COLLECTION TYPE, URINE CLEAN CATCH; CRYSTALS, URINE NONE SEEN (0-1+); EPITHELIAL CELLS, URINE SQUAMOUS 1+ /lpf (0-1+); RED BLOOD CELLS, URINE 0-1 /hpf (0-5); REFLEX CULTURE, URINE No (No); WHITE BLOOD CELLS, URINE 0-1 /HPF (0-5)
[2024-12-31] MEDS ORDERED: HYDROCODON-ACE1 EA10 PO (14:19)
[2024-12-31] MEDS ORDERED: IBU600 MG PO (14:19)
[2024-12-31 14:34] VITALS: BP 136/74
== END 2024-12-31 14:20 | disposition home or self-care (01) ==
LOC: ED 10:16
PROVIDERS: Emergency Medicine
DX: M54.50 Low back pain, unspecified (principal); I10 Essential (primary) hypertension; E78.00 Pure hypercholesterolemia, unspecified; F17.200 Nicotine dependence, unspecified, uncomplicated; Z79.899 Other long term (current) drug therapy; Z79.84 Long term (current) use of oral hypoglycemic drugs; Z88.8 Allergy status to other drugs, medicaments and biological substances
CPT/HCPCS: 36415; 80053; 81001; 85025; 99283; A9270